=== PATIENT | female | born 1965 | race Caucasian/White ===

== ENCOUNTER 2022-05-08 11:04 | Emergency (ER) | payer MEDICARE, OTHER ==
[~2022-05-08] VITALS: Ht 142.2 cm; Wt 65.0 kg
[2022-05-08 11:18] VITALS: BP 113/72
[2022-05-08] MEDS ORDERED: HYDROcodone-ACET 5/325MG TAB PO ONE (14:30)
[2022-05-08] MEDS ORDERED: PHEN-430 PO (14:45)
[2022-05-08] MEDS ORDERED: AZITTAB PO (14:45)
[2022-05-08] MEDS ORDERED: IBUP800T27 PO (14:45)
== END 2022-05-08 15:35 | disposition home or self-care (01) ==
LOC: ER 11:04 → EDBD 11:04 → ER 15:34
DX: S86.911A Strain of unspecified muscle(s) and tendon(s) at lower leg level, right leg, initial encounter (principal); S80.211A Abrasion, right knee, initial encounter; J06.9 Acute upper respiratory infection, unspecified; F15.10 Other stimulant abuse, uncomplicated; F17.200 Nicotine dependence, unspecified, uncomplicated; W01.0XXA Fall on same level from slipping, tripping and stumbling without subsequent striking against object, initial encounter; Y93.89 Activity, other specified; Y92.89 Other specified places as the place of occurrence of the external cause; Y99.8 Other external cause status
CPT/HCPCS: 73562